=== PATIENT | female | born 1960 | race Two or more races ===

== ENCOUNTER 2020-03-18 22:04 | Emergency (ER) | payer OTHER, SELFPAY ==
[2020-03-18 22:20] VITALS: BP 189/90; PULSE 83; RESP 16; TEMP 36.7; O2SAT 91; BMI 39.8
--- NOTE | 2020-03-18 22:28 | ED.NAVMDI ---
HPI - Nausea/Vomiting/Diarrhea General Chief complaint: Nausea/Vomiting/Diarrhea Stated complaint: abdominal pain Time Seen by Provider: 03/18/20 22:28 Related Data Allergies Allergy/AdvReac Type Severity Reaction Status Date / Time Sulfa (Sulfonamide Allergy Mild HIVES Verified 03/18/20 22:23 Antibiotics) [SULFA (SULFONAMIDE ANTIBIOTICS)] PMFSH Past Medical History Medical History (Updated 03/18/20 @ 22:22 by Luma Blancas) Chronic back pain Diabetes HTN (hypertension) Kidney stones Thyroid nodule Surgical History (Updated 03/18/20 @ 22:22 by Luma Blancas) History of renal stent Physical Exam Vital Signs: Vital Signs: Vital Signs Temp Pulse Resp BP Pulse Ox 03/18/20 22:20 98.1 F 83 16 189/90 H 91 L Body Mass Index 39.8
[2020-03-18 22:34] LABS: Basophils Absolute Auto 0.1 X10*3/uL (0.0-0.2); Basophils Percent Auto 0.7 % (0-2); Eosinophils Percent Auto 0.5 % (0-4); Hematocrit 41.6 % (37-47); Hemoglobin 13.8 g/dl (12.0-16.0); Imm Gran Abs Auto 0.03 X10*3/uL (0.00-0.03); Imm Gran Pct Auto 0.4 % (0.0-0.4); Lymphocytes Absolute Auto 1.6 X10*3/uL (1.2-4.9); Lymphocytes Percent Auto 21.8 % (20-40); Mean Corpuscular HGB Conc 33.2 g/dl (31.0-35.0); Mean Corpuscular Hemoglobin 29.4 pg (27.0-33.0); Mean Corpuscular Volume 88.5 fL (80-98); Mean Platelet Volume 9.6 fL (9.4-12.3); Monocytes Absolute Auto 0.3 X10*3/uL (0.1-1.2); Monocytes Percent Auto 3.6 % (2-11); Neutrophils Absolute Auto 5.3 X10*3/uL (2.0-8.3); Platelet Count 174 X10*3/uL (160-400); Red Cell Distribution Width 13.2 % (11.0-16.0); White Blood Count 7.3 X10*3/uL (4.8-10.8)
[2020-03-18 22:35] LABS: MANUAL DIFF FLAG NO
--- NOTE | 2020-03-18 22:40 | ED_ITS ---
HPI - Female Genitourinary General Chief complaint: Nausea/Vomiting/Diarrhea Stated complaint: abdominal pain Time Seen by Provider: 03/18/20 22:28 Source: patient Mode of arrival: ambulatory Limitations: no limitations History of Present Illness HPI Narrative: This is a 59-year-old female who presents after having a ureteral stent removed at approximately 11:00 a.m. this morning and then subsequently developed recurrent sharp pain afterwards that she states radiates down into her pelvic area without associated fevers or chills but patient is experiencing nausea and vomiting. She endorses that she has continued to be able to urinate and had called the urology office who recommended that she decrease her p.o. intake and that if her symptoms persisted that she should be evaluated in the emergency department. Related Data Previous Rx's Medication Instructions Recorded ketorolac 10 mg PO Q6H PRN 5 Days #20 tab 03/19/20 ondansetron HCl [Zofran] 4 mg PO Q8H PRN #7 tab 03/19/20 Allergies Allergy/AdvReac Type Severity Reaction Status Date / Time Sulfa (Sulfonamide Allergy Mild HIVES Verified 03/18/20 22:23 Antibiotics) [SULFA (SULFONAMIDE ANTIBIOTICS)] Review of Systems Review of Systems: Pertinent positives and negatives as stated in HPI 10 point review of systems is otherwise negative. PMFSH Past Medical History Source: nursing notes reviewed Medical History Chronic back pain Diabetes HTN (hypertension) Kidney stones Thyroid nodule Surgical History History of renal stent Social History Social History Alcohol intake: never Smoking Status: Never smoker Smoked in Last 30 Days: No Use of substances other than those prescribed or required for medical reasons: No Advance Directives: No Advance Directives Information Provided: Yes Physical Exam Vital Signs: Vital Signs: Vital Signs Temp Pulse Resp BP Pulse Ox 03/19/20 01:16 98.5 F 76 16 125/57 L 03/19/20 01:15 98 03/18/20 22:20 98.1 F 83 16 189/90 H 91 L Body Mass Index 39.8 VITAL SIGNS: Reviewed. GENERAL: Well developed, well nourished, in no acute distress. HEAD: Normocephalic/atraumatic, EYES: PERRLA, EOMI intact without pain, no nystagmus/pallor/icterus noted EARS: Ext canals without abnormality, TMs non-bulging and non-erythematous NOSE: Nares patent bilateral OROPHARYNX: no oral lesions noted, posterior pharynx clear and non-erythematous without noted tonsillar enlargement/erythema/exudates NECK: Supple, no adenopathy LUNGS: Normal breath sounds. No adventitious sounds or accessory muscle use. SpO2<91%> CARDIOVASCULAR: Regular rate and rhythm without noted murmurs, no JVD or lower extremity edema. ABDOMEN: Soft, non-tender, non-distended with bowel sounds. No rigidity. No guarding. No palpable masses or hernias noted MUSCULOSKELETAL: No tenderness, deformities, or effusions noted on gross inspection. EXTREMITIES: No cyanosis, clubbing or edema. SKIN: Inspection of the skin reveals no rashes, ulcerations, jaundice, pallor, or petechiae. NEUROLOGIC: Alert and oriented x 4. Strength and sensation to light touch were grossly intact x 4. Course Course Course Narrative: This is a 59-year-old female with history and clinical presentation consistent with likely bladder/ureteral spasm status post stent removal versus possible stone recurrence. On review of all investigations there are no acute findings and on review of CT scan there is a noted 2 mm stone with mild hydronephrosis. On re-evaluation patient has had complete resolution of her nausea and pain and will be discharged home in stable condition with strong recommendation to follow-up with her urologist tomorrow morning. MDM - Female Genitourinary Lab Data Result diagrams: 03/18/20 22:29 03/18/20 22:29 Labs: Lab Results 03/18/20 03/18/20 Range/Units 22:29 22:29 WBC 7.3 (4.8-10.8) X10*3/uL RBC 4.70 (4.20-5.50) X10*6/uL Hgb 13.8 (12.0-16.0) g/dl Hct 41.6 (37-47) % MCV 88.5 (80-98) fL MCH 29.4 (27.0-33.0) pg MCHC 33.2 (31.0-35.0) g/dl RDW 13.2 (11.0-16.0) % Plt Count 174 (160-400) X10*3/uL MPV 9.6 (9.4-12.3) fL Immature Gran % (Auto) 0.4 (0.0-0.4) % Neut % (Auto) 73.0 (45-73) % Lymph % (Auto) 21.8 (20-40) % [place] % (Auto) 3.6 (2-11) % Eos % (Auto) 0.5 (0-4) % Baso % (Auto) 0.7 (0-2) % Lymph # (Auto) 1.6 (1.2-4.9) X10*3/uL [place] # (Auto) 0.3 (0.1-1.2) X10*3/uL Eos # (Auto) 0.0 (0.0-0.4) X10*3/uL Baso # (Auto) 0.1 (0.0-0.2) X10*3/uL Abs Immat Gran (auto) 0.03 (0.00-0.03) X10*3/uL Absolute Neuts (auto) 5.3 (2.0-8.3) X10*3/uL Absolute Nucleated RBC 0.000 (0.0-0.012) X10*3/uL Nucleated RBC % (auto) 0.0 (0.0-0.2) /100WBC Sodium 138 (135-145) mmol/L Potassium 4.3 (3.3-5.1) mmol/l Chloride 103 (96-108) mmol/L Carbon Dioxide 22 (22-29) mmol/L Anion Gap 17 (12-20) BUN 15 (9-16) mg/dL Creatinine 0.91 (0.5-1.4) mg/dL Estim Creat Clear Calc 78.7 Estimated GFR > 60 Random Glucose 293 H (60-115) mg/dL Calcium 10.0 (8.4-10.2) mg/dL ECG Data Attestation: I personally reviewed and interpreted this ECG as follows: Prior ECG tracings: available for review (05/30/2013) Interpretation: NSR, HR-77, no evidence of ischemia, GA/QRS/QTc wnl Discharge Plan Discharge Clinical Impression: Renal colic Patient Disposition: Home, Self-Care Instructions: Renal Colic (ED) Additional Instructions: 1. resume all home medications as prescribed. 2. increase fluid hydration, especially water. The patient and/or family acknowledge understanding of results (as applicable), diagnosis, treatment plan, need for follow up, and symptoms that should prompt a return to the emergency room. Prescriptions: New ketorolac 10 mg tablet 10 mg PO Q6H PRN (Reason: pain) 5 Days Qty: 20 RF: 0 ondansetron HCl [Zofran] 4 mg tablet 4 mg PO Q8H PRN (Reason: nausea and vomiting) Qty: 7 RF: 0 Referrals: Gaby Cheek MD [Primary Care Provider] - 2 days ( for further evaluation and management of recurrent kidney stones) David Benson MD [Physician] - 2 days ( patient with recurrent kidney stones)
[2020-03-18] MEDS: Ketorolac Tromethamine 15 MG/ML VIAL IV (22:56)
[2020-03-18] MEDS: Phenazopyridine HCL 200 MG TABLET PO (22:56)
[2020-03-18] MEDS: ondansetron HCL 4 MG/2 ML VIAL IVPUSH (22:56)
[2020-03-18 23:03] LABS: Anion Gap 17 (12-20); Blood Urea Nitrogen 15 mg/dL (9-16); Carbon Dioxide 22 mmol/L (22-29); Chloride 103 mmol/L (96-108); Creatinine Clr Calc Pharmacy 78.7; Estimated Glomerular Filt Rate > 60; Glucose Random 293 mg/dL (60-115); Potassium 4.3 mmol/l (3.3-5.1); Sodium 138 mmol/L (135-145)
--- NOTE | 2020-03-18 23:26 | PC.NURSE ---
pt reports some relief of nausea. tolerating small sips of water.
--- NOTE | 2020-03-18 23:41 | ECG_ITS ---
Test Reason : VOMITING Blood Pressure : / mmHG Vent. Rate : 077 BPM Atrial Rate : 077 BPM P-R Int : 152 ms QRS Dur : 100 ms QT Int : 388 ms P-R-T Axes : 014 033 059 degrees QTc Int : 439 ms Normal sinus rhythm RSR' or QR pattern in V1 suggests right ventricular conduction delay Nonspecific ST and T wave abnormality Abnormal ECG When compared with ECG of 30-MAY-2013 11:16, ST more depressed Lateral leads Referred By: Vernoica García Electronically Signed By:FREDDIE CABRERA MD
--- NOTE | 2020-03-19 | CT_ITS ---
EXAMINATION: CT ABDOMEN AND PELVIS WITH CONTRAST CLINICAL INFORMATION: Lower abdominal pain COMPARISON: 10/11/2019 TECHNIQUE: Multidetector volumetric images were obtained from the superior aspect of the liver through the pubic symphysis following administration 85 mL of Omnipaque 350 intravenous contrast. Delayed imaging was also performed. Sagittal and coronal reformatted images were obtained on the technologist's workstation. Oral contrast: No This CT examination was performed using dose optimization techniques as appropriate, variously including the following: *Automated exposure control *Adjustment of mA and/or kV according to patient size (this includes techniques or standardized protocols for targeted exams where dose is matched to indication/reason for exam; i.e. extremities or head) *Use of iterative reconstruction technique DLP: 1842 mGy-cm FINDINGS: LUNG BASES: The visualized lung bases demonstrate streaky opacities favoring subsegmental atelectasis. LIVER, GALLBLADDER, AND BILIARY TREE: The liver is normal in size, shape, and attenuation. No focal hepatic lesion or biliary ductal dilatation is present. The gallbladder is unremarkable with no evidence of radiopaque gallstones, gallbladder wall thickening, or obvious pericholecystic inflammatory changes. PANCREAS: Unremarkable. SPLEEN: Unremarkable. ADRENAL GLANDS: Unremarkable. KIDNEYS AND URETERS: There is a 2 mm calculus at the distal right ureter near the ureterovesicular junction with moderate hydroureteronephrosis and some associated periureteral stranding. No abnormal enhancement noted along the ureter. Right nephrogram is slightly delayed. Additional calculi are present in the mid to lower right kidney, the appearance of which suggests clusters of tiny calculi. No left-sided hydronephrosis or obstructing calculus. Few hypodense bilateral renal lesions favor cysts. BLADDER: Partially distended. Small amount of gas in the bladder may be from recent catheterization. GASTROINTESTINAL TRACT: Duodenal diverticulum is noted. No evidence of bowel obstruction or significant wall thickening. Appendix appears collapsed. No free fluid or free air is seen. ABDOMINAL WALL: No significant hernia is appreciated. LYMPH NODES: Normal. VASCULAR: Scattered atherosclerotic calcifications are present.. PELVIC VISCERA: Uterine masses favor fibroids, one of which is mostly calcified. OSSEOUS STRUCTURES: Degenerative changes are noted in the spine. IMPRESSION: 1. Distal right ureteral calculus measuring 2 mm with moderate hydroureteronephrosis. Ureteral enhancement is noted; correlation with urinalysis is advised to assess for superimposed infection. 2. Additional right renal calculi. 3. Small amount of gas in the urinary bladder which could be due to recent catheterization or potentially infection.
[2020-03-19] MEDS: ondansetron HCL 4 MG/2 ML VIAL IVPUSH (00:17)
[2020-03-19] MEDS: iohexoL 350 MG/ML 100 ML INFUS..BTL 85 ML IV (01:09)
[2020-03-19 01:15] VITALS: PULSE 87; O2SAT 98
--- NOTE | 2020-03-19 01:15 | PC.NURSE ---
pt reports relief in symptoms. awaiting ct scan results
[2020-03-19 01:16] VITALS: BP 125/57; PULSE 76; RESP 16; TEMP 36.9
[2020-03-19 02:00] VITALS: PULSE 88; RESP 135; TEMP 37.1; O2SAT 98
[2020-03-19 03:10] LABS: Glucose Urine UA 500 MG/DL (NEG); Specific Gravity - Urine <= 1.005 (1.005-1.025); Urine Blood 3+ (NEG); Urine Ketones 15 MG/DL (NEG); Urine Protein 2+ MG/DL (NEG-TRACE)
[2020-03-19 03:11] LABS: Appearance Urine CLOUDY; Color Urine AMBER
[2020-03-19 03:13] LABS: Leukocyte Esterase Urine NEG (NEG); Nitrite Urine POS (NEG)
[2020-03-19 03:27] LABS: Bacteria Urine TRACE /LPF; Calcium Oxalate Crystals Urine 1+ /LPF; RBC Urine 30-49 /HPF (0); Squamous Epithelial Cell Urine 1+ /LPF; WBC Urine 0-2 /HPF (0-4)
[2020-03-19 03:28] LABS: Amorphous Sediment Urine 2+ /LPF
== END 2020-03-19 03:02 | disposition home or self-care (01) ==
PROVIDERS: Emergency Provider Student in an Organized Health Care Education/Training Program; PCP Internal Medicine
DX: N23 Unspecified renal colic (principal); E11.9 Type 2 diabetes mellitus without complications; I10 Essential (primary) hypertension; Z79.899 Other long term (current) drug therapy
CPT/HCPCS: 36415; 74177; 80048; 81001; 81003; 85025; 87086; 93005; 96374; 96375; 96376; 99285; J1885; J2405

== ENCOUNTER 2022-12-29 17:29 | Emergency (ER) | payer OTHER, SELFPAY ==
[2022-12-29 18:54] VITALS: BP 155/75; PULSE 79; RESP 18; TEMP 36.4; O2SAT 95; BMI 36.4
--- NOTE | 2022-12-29 18:54 | ED.EYEPROB ---
HPI - Eye Problem General Chief complaint: Eye Problems Stated complaint: right eye is yellow Time Seen by Provider: 12/29/22 18:56 Source: patient Mode of arrival: ambulatory Limitations: no limitations History of Present Illness HPI Narrative: 62 yo female presents to the ER for evaluation of painless yellow discoloration of the inner portion of her right eye that her coworker noticed today. She also noticed some blood in the eye as well. She denies any eye pain, vision changes, drainage or discharge. No FB sensation. chief complaint: other (yellow discoloration of a portion of left eye) Onset (ago): hour(s) Onset description: sudden Location: right eye Eye Symptoms: redness Place: work Mechanism: none Associated symptoms: none Treatments Prior to Arrival: none Related Data Previous Rx's Medication Instructions Recorded ketorolac 10 mg tablet 10 mg PO Q6H PRN pain 5 days #20 03/19/20 tabs ondansetron HCl 4 mg tablet 4 mg PO Q8H PRN nausea and 03/19/20 (Zofran) vomiting #7 tabs Allergies Allergy/AdvReac Type Severity Reaction Status Date / Time Sulfa (Sulfonamide Allergy Mild HIVES Verified 03/18/20 22:23 Antibiotics) [SULFA (SULFONAMIDE ANTIBIOTICS)] Review of Systems Review of Systems: Yes all other systems are reviewed and are negative PMFSH Past Medical History Medical History Chronic back pain Diabetes HTN (hypertension) Kidney stones Thyroid nodule Surgical History History of renal stent Social History Social History Alcohol intake: never Physical Exam Vital Signs: Vital Signs: Last Vital Signs Temp 97.6 F 12/29/22 18:54 Pulse 79 12/29/22 18:54 Resp 18 12/29/22 18:54 BP 155/75 H 12/29/22 18:54 Pulse Ox 95 12/29/22 18:54 BMI result Body Mass Index 36.4 Appearance: Alert. Oriented X3. No acute distress. HEENT: right medial sclera with small hemorrhage and associated very slight yellowish coloration of the medial sclera only. PERRLA. EOMI. normal inspection of the lids and conjunctiva CVS: Normal heart rate and rhythm. Pulses normal. Respiratory: No respiratory distress. Skin: Skin warm and dry. Normal skin color. Normal skin turgor. No rashes. Extremities: normal inspection x4 Neuro: Oriented X 3. grossly normal Medical Decision Making Medical Decision Making [facility] Narrative: 62 yo female presenting for evaluation of painless right medial scleral yellow and red discoloration noticed today. No other complaints and no vision changes. Exam is c/w mild subconjunctival hemorrhage. no scleral icterus present. Diagnosis and management d/w patient - stable for d/c home Differential Diagnosis Differential Diagnoses: The differential diagnosis associated with the presentation includes subconjunctival hemorrhage, scleral icterus due to liver failure, eye trauma External Record Review External record reviewed: Prior outpatient labs Prescription Management I considered prescription management with: Antibiotic Critical Care Time Critical Care Time Critical Care Time: No Discharge Plan Discharge Clinical Impression: Subconjunctival hemorrhage of right eye Patient Disposition: Home, Self-Care Instructions: Subconjunctival Hemorrhage (ED) Additional Instructions: the yellow discoloration in your eye is from old blood products being absorbed, it is benign. it will resolve with time follow up with your eye doctor as needed if you develop yellowing of both eyes, eye pain, vision changes or any other concerning symptoms call 911 or come back to the ER for further evaluation. Prescriptions: No Action ketorolac 10 mg tablet 10 mg PO Q6H PRN (Reason: pain) 5 Days Qty: 20 0RF ondansetron HCl [Zofran] 4 mg tablet 4 mg PO Q8H PRN (Reason: nausea and vomiting) Qty: 7 0RF
== END 2022-12-29 19:05 | disposition home or self-care (01) ==
LOC: HO.ED 19:04
PROVIDERS: Emergency Provider Internal Medicine; PCP Internal Medicine
DX: H11.31 Conjunctival hemorrhage, right eye (principal); E11.9 Type 2 diabetes mellitus without complications; I10 Essential (primary) hypertension
CPT/HCPCS: 99282